=== PATIENT | female | born 1985 | race Caucasian/White ===

== ENCOUNTER 2021-06-22 10:11 | Inpatient (IN) | payer BC ==
[2021-06-22] MEDS ORDERED: Nalbuphine 10 MG/1 ML Vial IVPUSH PRN (11:19)
[2021-06-22] MEDS ORDERED: Sodium Chloride 0.9% 10 ML Syringe FLUSH PRN (11:19)
[2021-06-22] MEDS ORDERED: Oxytocin/Lactated Ringers 10 UNIT/1,000 ML BAG IV SCH (11:30)
[2021-06-22] MEDS: Lactated Ringers 1,000 ML IV SCH ×3 (12:33→19:23)
--- NOTE | 2021-06-22 13:10 | PCM.LDHP ---
L&D History of Present Illness - General Date of Service: 06/22/21 Admit Problem/Dx: Patient Status Order with Admit Dx/Problem 06/22/21 10:18 Patient Status [ADT] Routine Admission Diagnosis/Problem Admission Diagnosis/Problem 06/22/21 13:02 Lizbeth is a 35-year-old 1001 female admitted at 39-4/7 weeks gestational age with an NICANOR of 06/25/2021 for SROM, positive AmniSure in early labor. Source of Information: Patient History Limitations: Reports: No Limitations - History of Present Illness Introduction:: Lizbeth is a 35-year-old 2 para 1001 female admitted at 39-4/7 weeks gestational age with an NICANOR of 06/25/2021 for SROM, positive AmniSure in early labor. She reports at approximately 0700 hrs. on 06/14/2021 while resting in bed she had a slow trickle of fluid. This is continued on till present time. AmniSure done in L&D this a.m. was positive for SROM. Patient has only minimal contractions noted at this time. 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 Her NICANOR of 06/23/2020 was based on her certain LMP 09/18/2020 and supported by an ultrasound done on 12/05/2020. Patient was seen early in and on a regular basis throughout the . Weight gain was from 180 to 213 pounds. Baby's been active. No significant tractions have been noted. Fundal height growth has been appropriate. Laboratory testing in shows blood to be O+ with a negative antibody screen. Initial hemoglobin was 13.4 g/dL and at second trimester was 11.8 g/dL. Platelet count was last done on 04/02/2021 and was 153,000. Her 1 hour GTT was 113. She is rubella positive. RPR is nonreactive. Hepatitis B surface antigen is negative. Chlamydia and gonorrhea tests were negative. Group B strep screen was negative. Allergies: None Medications: 1. vitamins 1 daily 2. Valtrex 1000 mg tablets take 2 tablets by mouth 2 times per day as needed for HSV. Past medical history: 1. x1 Past surgical history: 1. D&C Family history: Mother and father are alive. Father has history of diabetes and hypertension on oral medications. Mother is healthy. Grandfather . Maternal grandfather secondary to lung cancerwas not a smoker. Paternal grandfather secondary to colorectal cancer but also had diabetes. Maternal aunt and uncle with no problems. Paternal aunt and uncle with hypertension. Brothers x2 with good health. Social history: Patient is . is Timothy. They live on a [place]/ranch [place] of [place], [place]. She does not use any significant muscle alcohol, drugs or tobacco. Review of systems: Review of systems: In general patient has no complaints. Looking fluid. Is not having any significant contractions. Baby has been active. Skin: Negative Lungs: No infectious symptoms or shortness of breath Cardiovascular: No chest pain or exercise intolerance Breasts: No lumps, changes in size, pain, dimpling, discharge or axillary or supraclavicular concerns. GI: Negative : Changes associated with . Musculoskeletal: Negative Neurological: Negative Physical exam: In general the patient is well-developed, well-nourished, pleasant female of stated age in no acute distress. Skin is warm dry without lesions. HEENT, neck and back within normal limits. Lungs are clear with good breath sounds in all lung martin. Cardiovascular exam shows regular and rhythm without murmurs. Abdomen is gravid with last fundal height in clinic at 39 cm with baby in vertex presentation. Genital exam per digital evaluation shows cervix 2 cm, 80% effaced, -3 station, mid position, soft, cephalic presentation. Extremities and neurological exam are grossly within normal limits. - Related Data Allergies/Adverse Reactions: Allergies Allergy/AdvReac Type Severity Reaction Status Date / Time No Known Allergies Allergy Verified 06/22/21 10:22 Home Medications: Home Meds Mv-Mn/Iron/FA/Herbal/Digestive [ One Tablet] 1 tab PO DAILY 06/22/21 [History] H&P Review of Systems - Review of Systems: Review Of Systems: See Below L&D Exam - Exam Exam: See Below - Vital Signs Vital Signs: Last Vital Signs Temp 37.0 C 06/22/21 10:35 Pulse 82 06/22/21 10:35 Resp 16 06/22/21 10:35 BP 141/98 H 06/22/21 10:35 Pulse Ox 98 06/22/21 10:35 Weight: 97.386 kg - Patient Data Lab Results Last 24 hrs: Laboratory Results - last 24 hr 06/22/21 06/22/21 06/22/21 Range/Units 10:37 11:39 11:52 WBC 7.74 (3.98-10.04) K/mm3 RBC 3.65 L (3.98-5.22) M/mm3 Hgb 11.6 (11.2-15.7) gm/dl Hct 34.7 (34.1-44.9) % MCV 95.1 H (79.4-94.8) fl MCH 31.8 (25.6-32.2) pg MCHC 33.4 (32.2-35.5) g/dl RDW Std Deviation 44.8 (36.4-46.3) fL Plt Count 157 L (182-369) K/mm3 MPV 9.8 (9.4-12.3) fl Neut % (Auto) 72.0 H (34.0-71.1) % Lymph % (Auto) 17.8 L (19.3-51.7) % [place] % (Auto) 8.5 (4.7-12.5) % Eos % (Auto) 0.8 (0.7-5.8) Baso % (Auto) 0.1 (0.1-1.2) % Neut # (Auto) 5.57 (1.56-6.13) K/mm3 Lymph # (Auto) 1.38 (1.18-3.74) K/mm3 [place] # (Auto) 0.66 H (0.24-0.36) K/mm3 Eos # (Auto) 0.06 (0.04-0.36) K/mm3 Baso # (Auto) 0.01 (0.01-0.08) K/mm3 Membrane Rupture Positive H SARS-CoV-2 RNA (MARISSA) Negative (NEGATIVE) Result Diagrams: 06/22/21 11:52 - Problem List (1) 39 weeks gestation of SNOMED Code(s): 70582523 ICD Code: Z3A.39 - 39 WEEKS GESTATION OF Status: Acute Current Visit: Yes (2) SROM (spontaneous rupture of membranes) SNOMED Code(s): 354266364 ICD Code: [id number] - Status: Acute Current Visit: Yes Problem List Initiated/Reviewed/Updated: Yes Orders Last 24hrs: Active Orders 24 hr Category Date Time Status Patient Status [ADT] Routine ADT 06/22/21 10:18 Active Activity as Tolerated [RC] PFP Care 06/22/21 11:19 Active Communication Order [RC] ASDIRECTED Care 06/22/21 11:19 Active Heart Tones [RC] ASDIRECTED Care 06/22/21 11:20 Active Notify Provider [RC] PFP Care 06/22/21 11:19 Active Notify Provider [RC] PRN Care 06/22/21 11:19 Active Peripheral IV Care [RC] . DIRECTED Care 06/22/21 11:20 Active Vital Signs [RC] 03,09,15,21 Care 06/22/21 11:19 Active Vital Signs [RC] PER UNIT ROUTINE Care 06/22/21 10:18 Active Regular Diet [DIET] Diet 06/22/21 Lunch Active HEP C VIRUS AB [REF] Stat Lab 06/22/21 11:52 Received RAPID PLASMA REAGIN,RPR [CHEM] Routine Lab 06/22/21 11:52 Received TYPE AND SCREEN [BBK] Stat Lab 06/22/21 11:52 Received Lactated Ringers [Ringers, Lactated] 1,000 ml Med 06/22/21 11:30 Active IV ASDIRECTED Nalbuphine [Nubain] Med 06/22/21 11:19 Active 10 mg IVPUSH Q2H PRN Oxytocin/Lactated Ringers [Pitocin in LR 10 Units/1,000 Med 06/22/21 11:30 Active ML] 10 unit in 1,000 ml IV TITRATE Sodium Chloride 0.9% [Saline Flush] Med 06/22/21 11:19 Active 10 ml FLUSH ASDIRECTED PRN Electronic Heart Tones Ext w TOCO [WOMSER] Oth 06/22/21 11:19 Ordered Routine Peripheral IV Insertion Adult [OM.PC] Routine Oth 06/22/21 11:19 Ordered Resuscitation Status Routine Resus Stat 06/22/21 10:18 Ordered Medication Orders Lactated Ringer's (Ringers, Lactated) 1,000 mls @ 100 mls/hr IV ASDIRECTED STACIE Last Admin: 06/22/21 12:33 Dose: 100 mls/hr Documented by: FICEKEL Oxytocin/Lactated Ringer's (Pitocin In Lr 10 Units/1,000 Ml) 10 unit in 1,000 mls @ 12 mls/hr IV TITRATE STACIE; Protocol Last Admin: 06/22/21 12:33 Dose: 2 munits/min, 12 mls/hr Documented by: EMILY Nalbuphine HCl (Nalbuphine 10 Mg/1 Ml Vial) 10 mg IVPUSH Q2H PRN PRN Reason: Pain Sodium Chloride (Sodium Chloride 0.9% 10 Ml Syringe) 10 ml FLUSH ASDIRECTED PRN PRN Reason: Keep Vein Open Assessment/Plan Comment:: Assessment: 1. Lizbeth is a 35-year-old 1001 female admitted at 39-4/7 weeks gestational age with an NICANOR of 06/25/2021 for SROM, positive AmniSure in early la bor. 2. Group B strep negative 3. Patient desiring epidural in labor for analgesia 4. Patient plans to breast-feed 5. Minimal risk factors present. Plan: 1. Anticipate 2. Pitocin augmentation of labor if not butch well within the next 6 hours to attempt at achieving delivery by 24 hours post SROM 3. Support breast-feeding decision 4. Epidural per patient desire 5. Initial labs include Covid19, RPR, CBC.
[2021-06-22] MEDS ORDERED: Bupivacaine/fentaNYL/NS 100 ML Bag EPIDUR PRN (15:53)
[2021-06-22] MEDS ORDERED: ePHEDrine 50 MG/ML SDV IVPUSH PRN (15:53)
[2021-06-22] MEDS ORDERED: diphenhydrAMINE 50 MG/ML SDV IVPUSH PRN (15:53)
[2021-06-22] MEDS ORDERED: fentaNYL 100 MCG/2 ML SDV EPIDUR PRN (15:53)
--- NOTE | 2021-06-22 16:26 | PCM.PREANE ---
Preanesthetic Assessment - Procedure Proposed Procedure: herminio - Anesthesia/Transfusion/Family Hx Anesthesia History: Prior Anesthesia Reaction Family History of Anesthesia Reaction: No Transfusion History: No Prior Transfusion(s) - Review of Systems General: No Symptoms Pulmonary: No Symptoms Cardiovascular: No Symptoms Gastrointestinal: No Symptoms Neurological: No Symptoms Other: Reports: None - Physical Assessment Vital Signs: Last Vital Signs Temp 98.6 F 06/22/21 10:35 Pulse 82 06/22/21 10:35 Resp 16 06/22/21 10:35 BP 141/98 H 06/22/21 10:35 Pulse Ox 98 06/22/21 10:35 Height: 5 ft 5 in Weight: 97.069 kg ASA Class: 2 Mental Status: Alert & Oriented x3 Airway Class: Mallampati = 2 Dentition: Reports: Normal Dentition Thyro-Mental Finger Breadths: 3 Mouth Opening Finger Breadths: 3 ROM/Head Extension: Full Lungs: Clear to Auscultation, Normal Respiratory Effort Cardiovascular: Regular Rate, Regular Rhythm - Lab Values: Laboratory Last Values WBC 7.74 K/mm3 (3.98-10.04) 06/22/21 11:52 RBC 3.65 M/mm3 (3.98-5.22) L 06/22/21 11:52 Hgb 11.6 gm/dl (11.2-15.7) 06/22/21 11:52 Hct 34.7 % (34.1-44.9) 06/22/21 11:52 MCV 95.1 fl (79.4-94.8) H 06/22/21 11:52 MCH 31.8 pg (25.6-32.2) 06/22/21 11:52 MCHC 33.4 g/dl (32.2-35.5) 06/22/21 11:52 RDW Std Deviation 44.8 fL (36.4-46.3) 06/22/21 11:52 Plt Count 157 K/mm3 (182-369) L 06/22/21 11:52 MPV 9.8 fl (9.4-12.3) 06/22/21 11:52 Neut % (Auto) 72.0 % (34.0-71.1) H 06/22/21 11:52 Lymph % (Auto) 17.8 % (19.3-51.7) L 06/22/21 11:52 [place] % (Auto) 8.5 % (4.7-12.5) 06/22/21 11:52 Eos % (Auto) 0.8 (0.7-5.8) 06/22/21 11:52 Baso % (Auto) 0.1 % (0.1-1.2) 06/22/21 11:52 Neut # (Auto) 5.57 K/mm3 (1.56-6.13) 06/22/21 11:52 Lymph # (Auto) 1.38 K/mm3 (1.18-3.74) 06/22/21 11:52 [place] # (Auto) 0.66 K/mm3 (0.24-0.36) H 06/22/21 11:52 Eos # (Auto) 0.06 K/mm3 (0.04-0.36) 06/22/21 11:52 Baso # (Auto) 0.01 K/mm3 (0.01-0.08) 06/22/21 11:52 BUN 10 mg/dL (7-18) 06/22/21 11:48 Creatinine 0.6 mg/dL (0.55-1.02) 06/22/21 11:48 Est Cr Clr Drug Dosing 118.88 mL/min 06/22/21 11:48 Estimated GFR (MDRD) > 60 mL/min (>60) 06/22/21 11:48 Uric Acid 4.1 mg/dL (2.6-6.0) 06/22/21 11:48 AST 14 U/L (15-37) L 06/22/21 11:48 ALT 24 U/L (14-59) 06/22/21 11:48 Lactate Dehydrogenase 177 U/L (81-234) 06/22/21 11:48 Ur Random Creatinine < 13.0 mg/dL (30.0-125.0) L 06/22/21 14:24 U Random Total Protein 9.3 mg/dL (0.0-11.8) 06/22/21 14:24 Protein/Creatinin Ratio TNP 06/22/21 14:24 Membrane Rupture Positive H 06/22/21 10:37 SARS-CoV-2 RNA (MARISSA) Negative (NEGATIVE) 06/22/21 11:39 Blood Type O POSITIVE 06/22/21 11:52 Gel Antibody Screen Negative 06/22/21 11:52 - Allergies Allergies/Adverse Reactions: Allergies Allergy/AdvReac Type Severity Reaction Status Date / Time No Known Allergies Allergy Verified 06/22/21 10:22 - Blood Blood Available: No - Acknowledgements Anesthesia Type Planned: Epidural Pt an Appropriate Candidate for the Planned Anesthesia: Yes Alternatives and Risks of Anesthesia Discussed w Pt/Guardian: Yes Pt/Guardian Understands and Agrees with Anesthesia Plan: Yes PreAnesthesia Questionnaire Cardiovascular History: Reports: None Respiratory History: Reports: None Gastrointestinal History: Reports: GERD (minimal with preg) 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 Placenta privia which resolved with this current Musculoskeletal History: Reports: None Endocrine/Metabolic History: Reports: Obesity/BMI 30+ Oncologic (Cancer) History: Reports: None - SUBSTANCE USE Tobacco Use Status *Q: Never Tobacco User Tobacco Use Within Last Twelve Months: No Second Hand Smoke Exposure: No Days Per Week of Alcohol Use: 0 Recreational Drug Use History: No - HOME MEDS Home Medications: Home Meds Mv-Mn/Iron/FA/Herbal/Digestive [ One Tablet] 1 tab PO DAILY 06/22/21 [History] - CURRENT (IN HOUSE) MEDS Current Meds: Current Medications Diphenhydramine HCl (Diphenhydramine 50 Mg/Ml Sdv) 25 mg IVPUSH Q6H PRN PRN Reason: pruritis Ephedrine Sulfate (Ephedrine 50 Mg/Ml Sdv) 5 mg IVPUSH ASDIRECTED PRN PRN Reason: Hypotension Fentanyl (Fentanyl 100 Mcg/2 Ml Sdv) 100 mcg EPIDUR Q3H PRN PRN Reason: Pain Last Admin: 06/22/21 16:09 Dose: 100 mcg Documented by: Fentanyl/Bupivacaine HCl (Bupivacaine/Fentanyl/Ns 100 Ml Bag) 100 ml EPIDUR ASDIRECTED PRN PRN Reason: Pain Last Admin: 06/22/21 16:09 Dose: 100 ml Documented by: Lactated Ringer's (Ringers, Lactated) 1,000 mls @ 100 mls/hr IV ASDIRECTED STACIE Last Admin: 06/22/21 15:42 Dose: 100 mls/hr Documented by: Oxytocin/Lactated Ringer's (Pitocin In Lr 10 Units/1,000 Ml) 10 unit in 1,000 mls @ 12 mls/hr IV TITRATE STACIE; Protocol Last Titration: 06/22/21 14:30 Dose: 6 munits/min, 36 mls/hr Documented by: Nalbuphine HCl (Nalbuphine 10 Mg/1 Ml Vial) 10 mg IVPUSH Q2H PRN PRN Reason: Pain Sodium Chloride (Sodium Chloride 0.9% 10 Ml Syringe) 10 ml FLUSH ASDIRECTED PRN PRN Reason: Keep Vein Open
[2021-06-22] MEDS ORDERED: Sodium Chloride 0.9% 1,000 ML IRR PRN (18:19)
[2021-06-22] MEDS ORDERED: Sodium Chloride 0.9% 1,000 ML IRR SCH (18:45)
[2021-06-22] MEDS ORDERED: Sodium Chloride 0.9% 1,000 ML ONE (18:50)
--- NOTE | 2021-06-22 22:54 | PCM.SN.2 ---
- Free Text/Narrative Note: Delivery note: Stage I: Lizbeth is a 35-year-old 2 now para 2002 female admitted at 39- 4/7 weeks gestational age with an NICANOR of 06/25/2021 for SROM, positive AmniSure in early labor. She reports at approximately 0700 hrs. on 06/14/2021 while resting in bed she had a slow trickle of fluid. She progressed in labor very slowly. She underwent enhancement of labor with Pitocin. Eventually underwent an epidural for labor analgesia with good results. Lizbeth had an intrauterine pressure catheter placed after the epidural to facilitate evaluation of contraction adequacy. Pitocin was started thereafter to enhance the contractions. With this enhancement the heart tones showed repetitive variable decelerations that were moderate intensity. With this finding decision was made to do amnioinfusion with a normal saline. 200 cc of normal saline was rapidly placed through the catheter into the uterine cavity followed by a maintenance dose of 150 cc/h. With this amnioinfusion the variable decelerations essentially resolved to the degree that labor ensued progressed to complete cervical dilation by approximately 2215 hrs. Stage II: Lizbeth delivered a viable, hirsch, female with Apgars of 8 and 9, weight of 2780 g (6 pounds 2.1 ounces and a length of 20.0 inches at 2228 hrs. on 06/22/2016. The baby delivered in a direct occiput anterior position. There was a moderately tight nuchal cord which was reduced over the baby's body with delivery. Shoulders were delivered with a gentle downward and then upward traction. Basilar completely and placed on mom's abdomen. She was dried with warm blanket, nose and mouth were bulb suctioned by nursing staff. The umbil ical cord is allowed to pulsate for approximately 2 to 3 minutes after which time was clamped x2 and cut by the baby's father Timothy. Cord was obtained. The umbilical cord had 3 vessels. The vagina and perineum was evaluated and no lacerations were noted. Stage III: The placenta delivered at 2233 hrs. in a Cesia presentation, it appeared intact and complete and was discarded per patient desire. As high blood loss is 100 cc. Patient plans to breast-feed. Condition: Good
[2021-06-22] MEDS ORDERED: Benzocaine/Menthol 20%-0.5% Spray 56 GM Canister TOP PRN (22:59)
[2021-06-23] MEDS: Witch Hazel Medicated Pads 40/Jar TOP PRN (00:14)
[2021-06-23] MEDS: Ibuprofen 600 MG Tab PO PRN ×3 (06:47→17:10)
--- NOTE | 2021-06-23 07:06 | PCM.SN.2 ---
- Free Text/Narrative Note: note: Patient is doing well in the period. Minimal lochia, voiding well, ambulated without problems. Nursing without concerns. Patient is afebrile, vital signs are stable with the exception of some blood pressure has been borderline elevated. Abdomen is flat, soft, uterus is below the umbilicus and is firm and nontender. Legs are nontender. Assessment: recovery going well. Plan: Routine care. Will monitor blood pressure closely. Patient be discharged home within the next 24-48 hours.
[2021-06-23] MEDS ORDERED: Bupivacaine 0.25% 10 ML SDV ONE (08:00)
[2021-06-23] MEDS: Acetaminophen 325 MG Tab PO PRN ×3 (08:42→21:13)
[2021-06-23] MEDS: Docusate Sodium 100 MG Cap PO PRN (21:20)
--- NOTE | 2021-06-24 07:08 | PCM48HPAN ---
Post Anesthesia Note - EVALUATION WITHIN 48HRS OF ANESTHETIC Vital Signs in Normal Range: Yes Patient Participated in Evaluation: Yes Respiratory Function Stable: Yes Airway Patent: Yes Cardiovascular Function Stable: Yes Hydration Status Stable: Yes Pain Control Satisfactory: Yes Nausea and Vomiting Control Satisfactory: Yes Mental Status Recovered: Yes Vital Signs: Last Vital Signs Temp 36.5 C 06/24/21 04:28 Pulse 70 06/24/21 04:28 Resp 15 06/24/21 04:28 BP 138/92 H 06/24/21 04:28 Pulse Ox 98 06/24/21 04:28
[2021-06-24] MEDS: Ibuprofen 600 MG Tab PO PRN (07:46)
[2021-06-24] MEDS: Docusate Sodium 100 MG Cap PO PRN (07:54)
--- NOTE | 2021-06-24 08:39 | PCM.SN.2 ---
- Free Text/Narrative Note: Post Progress Note PPD #2 Subjective: Doing well overall. Ambulating without difficulty. Lochia minimal. Voiding without difficulty. Tolerating regular diet without nausea or vomiting. Pain controlled with oral medications. Breast-feeding with minimal difficulty. Denies any headaches, vision changes or epigastric pain. Objective: Vitals: Vital Signs - 24 hr 06/23/21 06/23/21 06/23/21 08:40 15:46 21:03 Temperature 36.2 C 36.6 C Pulse, 80 88 72 Peripheral Respiratory 12 16 Rate Blood Pressure 132/87 148/89 H 136/99 H O2 Sat by Pulse 98 100 99 Oximetry 06/23/21 06/24/21 21:04 04:28 Temperature 36.5 C Pulse, 70 Peripheral Respiratory 15 Rate Blood Pressure 125/93 H 138/92 H O2 Sat by Pulse 98 Oximetry Physical Exam General: Alert and oriented, no acute distress Lungs: Clear to auscultation bilaterally Heart: Regular rate and rhythm Abdomen: Soft, minimal appropriate tenderness, non-distended, fundus midline, nontender, and at the umbilicus Extremities: Trace edema in bilateral lower extremities to mid shins, no calf tenderness bilaterally ASSESSMENT: 35-year-old female -0-0-2 s/p normal vaginal delivery PPD #2, complicated by gestational hypertension diagnosed during labor PLAN: Doing well Breast-feeding with minimal difficulty. Assist as needed Lochia minimal. Continue to monitor for appropriate lochia. Continue routine care No evidence of severe features of preeclampsia. Patient continues to have mild range blood pressures but not severe enough to require treatment at this time Discharge home today Bernardino Hernandez MD 8:38 AM 06/24/2021
--- NOTE | 2021-06-24 08:44 | PCM.DCSUM1 ---
Discharge Summary - Hospital Course Free Text/Narrative:: Stage I: Lizbeth is a 35-year-old 2 now para 2001 female admitted at 39- 4/7 weeks gestational age with an NICANOR of 06/25/2021 for SROM, positive AmniSure in early labor. She reports at approximately 0700 hrs. on 06/14/2021 while resting in bed she had a slow trickle of fluid. She progressed in labor very slowly. She underwent enhancement of labor with Pitocin. Eventually underwent an epidural for labor analgesia with good results. Lizbeth had an intrauterine pressure catheter placed after the epidural to facilitate evaluation of contraction adequacy. Pitocin was started thereafter to enhance the contractions. With this enhancement the heart tones showed repetitive variable decelerations that were moderate intensity. With this finding decision was made to do amnioinfusion with a normal saline. 200 cc of normal saline was rapidly placed through the catheter into the uterine cavity followed by a maintenance dose of 150 cc/h. With this amnioinfusion the variable decelerations essentially resolved to the degree that labor ensued progressed to complete cervical dilation by approximately 2215 hrs. Stage II: Lizbeth delivered a viable, hirsch, female with Apgars of 8 and 9, weight of 2780 g (6 pounds 2.1 ounces and a length of 20.0 inches at 2228 hrs. on 06/22/2016. The baby delivered in a direct occiput anterior position. There was a moderately tight nuchal cord which was reduced over the baby's body with delivery. Shoulders were delivered with a gentle downward and then upward traction. Basilar completely and placed on mom's abdomen. She was dried with warm blanket, nose and mouth were bulb suctioned by nursing staff. The umbilical cord is allowed to pulsate for approximately 2 to 3 minutes after which time was clamped x2 and cut by the baby's father Timothy. Cord was obtained. The umbilical cord had 3 vessels. The vagina and perineum was evaluated and no lacerations were noted. Stage III: The placenta delivered at 2233 hrs. in a Cesia presentation, it appeared intact and complete and was discarded per patient desire. As high blood loss is 100 cc. Patient plans to breast-feed. Condition: Good Diagnosis: Stroke: No - Discharge Data Discharge Date: 06/24/21 Discharge Disposition: Home, Self-Care 01 Condition: Good - Referral to Home Health Primary Care Physician: Genie Lyn MD - Discharge Diagnosis/Problem(s) (1) Gestational hypertension SNOMED Code(s): 40053832 ICD Code: O13.9 - GESTATIONAL HTN W/O SIGNIFICANT PROTEINURIA, UNSP TRIMESTER Status: Acute Current Visit: Yes (2) Vaginal delivery SNOMED Code(s): 375915576 ICD Code: O80 - ENCOUNTER FOR FULL-TERM UNCOMPLICATED DELIVERY Status: Acute Current Visit: Yes (3) 39 weeks gestation of SNOMED Code(s): 60909341 ICD Code: Z3A.39 - 39 WEEKS GESTATION OF Status: Acute Current Visit: Yes - Patient Summary/Data Complications: Gestational hypertension in labor Consults: None Hospital Course: Lizbeth Hernandez was admitted for spontaneous rupture of membranes confirmed with AmniSure. She was leaking clear fluid on admission. On admission her cervix was dilated to 2 cm. She was GBS negative. She had multiple mild range blood pressures throughout labor. She had lab work that did not show any significant abnormalities consistent with preeclampsia. She was diagnosed with gestational hypertension. She was given pitocin for augmentation. She was given an epidural for anesthesia. She progressed to complete and began pushing. On 06/22/2021 she had a normal vaginal delivery of a live female infant at 22:28. Apgars of 8 and 9. Weight of 2780 g (6 pounds 2.1 ounces). Her course was uneventful. Her pain was well controlled and she had minimal lochia. She was ambulating, tolerating a regular diet and voiding normally. She was breast-feeding with minimal difficulty. She was afebrile and her hematocrit was 34.7 on admission. She desired to be discharged home on the morning of PPD #2. Her blood type is O+. - Patient Instructions Diet: Regular Diet as Tolerated Activity: Apply Ice, As Tolerated Activity, Other: Nothing in the vagina for 6 weeks Driving: May Drive Today Showering/Bathing: May Shower Notify Provider of: Fever, Increased Pain, Swelling and Redness, Drainage, Nausea and/or Vomiting Other/Special Instructions: Please contact your physician's office if you have heavy vaginal bleeding enough to soak a pad in less than an hour for several hours. Monitor for any signs of an infection in the breasts with severe pain or redness of the breast. Please contact your physician's office if you have a severe headache that does not improve with Tylenol or ibuprofen, spots in your vision or severe pain in your upper abdomen. - Discharge Plan *PRESCRIPTION DRUG MONITORING PROGRAM REVIEWED*: Not Applicable *COPY OF PRESCRIPTION DRUG MONITORING REPORT IN PATIENT SHILO: Not Applicable Home Medications: Home Meds Mv-Mn/Iron/FA/Herbal/Digestive [ One Tablet] 1 tab PO DAILY 06/22/21 [History] Acetaminophen [Tylenol] 650 mg PO Q6H PRN tablet 06/24/21 [Rx] Benzocaine/Menthol [Dermoplast Pain Relief [place]] 1 spray TOP ASDIRECTED PRN canister 06/24/21 [Rx] Docusate Sodium [Colace] 100 mg PO BID PRN cap 06/24/21 [Rx] Ibuprofen [Motrin] 600 mg PO Q6H PRN tablet 06/24/21 [Rx] witch Tiburcio [Tucks] 1 pad TOP ASDIRECTED PRN pad 06/24/21 [Rx] Patient Handouts: Care After Vaginal Delivery, Hypertension During Referrals: Genie Lyn MD [Primary Care Provider] - (Follow-up for blood pressure check on 06/27 or 06/28 due to gestational hypertension or earlier as needed for any other problems as they may arise.) - Discharge Summary/Plan Comment DC Time >30 min.: No Total # of Minutes for Discharge Time: 15 minutes - Patient Data Vitals - Most Recent: Last Vital Signs Temp 36.5 C 06/24/21 04:28 Pulse 70 06/24/21 04:28 Resp 15 06/24/21 04:28 BP 138/92 H 06/24/21 04:28 Pulse Ox 98 06/24/21 04:28 Weight - Most Recent: 97.069 kg Med Orders - Current: Current Medications Acetaminophen (Acetaminophen 325 Mg Tab) 650 mg PO Q4H PRN PRN Reason: mild pain or fever Last Admin: 06/23/21 21:13 Dose: 650 mg Documented by: Benzocaine/Menthol (Benzocaine/Menthol 20%-0.5% [place] 56 Gm Canister) 0 gm TOP ASDIRECTED PRN PRN Reason: Perineal Comfort Measure Last Admin: 06/23/21 00:13 Dose: 1 can Documented by: Docusate Sodium (Docusate Sodium 100 Mg Cap) 100 mg PO BID PRN PRN Reason: Constipation Last Admin: 06/24/21 07:54 Dose: 100 mg Documented by: Ibuprofen (Ibuprofen 600 Mg Tab) 600 mg PO Q4H PRN PRN Reason: Mild pain or fever Last Admin: 06/24/21 07:46 Dose: 600 mg Documented by: Kiya Nielsen (Kiya Nielsen Medicated Pads 40/Jar) 1 pad TOP ASDIRECTED PRN PRN Reason: Perineal Comfort Measure Last Admin: 06/23/21 00:14 Dose: 1 tub Documented by: Discontinued Medications Diphenhydramine HCl (Diphenhydramine 50 Mg/Ml Sdv) 25 mg IVPUSH Q6H PRN PRN Reason: pruritis Ephedrine Sulfate (Ephedrine 50 Mg/Ml Sdv) 5 mg IVPUSH ASDIRECTED PRN PRN Reason: Hypotension Fentanyl (Fentanyl 100 Mcg/2 Ml Sdv) 100 mcg EPIDUR Q3H PRN PRN Reason: Pain Last Admin: 06/22/21 16:09 Dose: 100 mcg Documented by: Fentanyl/Bupivacaine HCl (Bupivacaine/Fentanyl/Ns 100 Ml Bag) 100 ml EPIDUR ASDIRECTED PRN PRN Reason: Pain Last Admin: 06/22/21 16:09 Dose: 100 ml Documented by: Lactated Ringer's (Ringers, Lactated) 1,000 mls @ 100 mls/hr IV ASDIRECTED STACIE Last Admin: 06/22/21 19:23 Dose: 100 mls/hr Documented by: Oxytocin/Lactated Ringer's (Pitocin In Lr 10 Units/1,000 Ml) 10 unit in 1,000 mls @ 12 mls/hr IV TITRATE STACIE; Protocol Last Titration: 06/22/21 19:40 Dose: 4 munits/min, 24 mls/hr Documented by: Sodium Chloride (Sodium Chloride 0.9%) 1,000 mls @ 200 mls/hr IRR ASDIRECTED PRN PRN Reason: Labor order Sodium Chloride (Normal Saline) 1,000 mls @ 200 mls/hr IRR ASDIRECTED STACIE Sodium Chloride (Normal Saline) Confirm Administered Dose 1,000 mls @ as directed .ROUTE .[facility] Stop: 06/22/21 18:51 Last Admin: 06/22/21 19:10 Dose: Not Given Documented by: Nalbuphine HCl (Nalbuphine 10 Mg/1 Ml Vial) 10 mg IVPUSH Q2H PRN PRN Reason: Pain Sodium Chloride (Sodium Chloride 0.9% 10 Ml Syringe) 10 ml FLUSH ASDIRECTED PRN PRN Reason: Keep Vein Open
[2021-06-24] MEDS: Witch Hazel Medicated Pads 40/Jar TOP PRN (10:57)
== END 2021-06-24 11:00 | disposition home or self-care (01) | DRG 560 ==
LOC: JD.OBCHECK 10:11 → JD.OB 10:12 → JD.OBCHECK 10:18 → JD.OB 10:18 → OBSVTOIN 22:28 → JD.OB 22:28
PROVIDERS: ADMIT Obstetrics & Gynecology; ATTEND Obstetrics & Gynecology
PROC: 10E0XZZ Delivery of Products of Conception, External Approach (ICD-10-PCS; principal; 2021-06-22)
PROC: 10H07YZ Insertion of Other Device into Products of Conception, Via Natural or Artificial Opening (ICD-10-PCS; 2021-06-22)
PROC: 3E0R3BZ Introduction of Anesthetic Agent into Spinal Canal, Percutaneous Approach (ICD-10-PCS; 2021-06-22)
PROC: 00HU33Z Insertion of Infusion Device into Spinal Canal, Percutaneous Approach (ICD-10-PCS; 2021-06-22)
DX: O13.4 Gestational [pregnancy-induced] hypertension without significant proteinuria, complicating childbirth (principal); Z37.0 Single live birth; O69.1XX0 Labor and delivery complicated by cord around neck, with compression, not applicable or unspecified; Z20.822 Contact with and (suspected) exposure to COVID-19; Z3A.39 39 weeks gestation of pregnancy
CPT/HCPCS: 01967; 36415; 51702; 59025; 59409; 82565; 82570; 83615; 84112; 84156; 84450; 84460; 84520; 84550; 85025; 86592; 86803; 86850; 86900; 86901; A9270-GY; J2590; J3010; J3490; J7120; U0002

== ENCOUNTER 2022-09-28 18:51 | Inpatient (IN) | payer BC ==
[~2022-09-28 18:51] MED LIST: Lidocaine 1% 10 ML MDV ONE
[2022-09-28] MEDS ORDERED: Sodium Chloride 0.9% 10 ML Syringe FLUSH PRN (19:42)
[2022-09-28] MEDS ORDERED: Ondansetron 4 MG/2 ML SDV IVPUSH PRN (19:42)
[2022-09-28] MEDS ORDERED: Calcium Carbonate 500 MG Tab.Chew PO PRN (19:42)
[2022-09-28] MEDS ORDERED: Oxytocin/Lactated Ringers 10 UNIT/1,000 ML BAG IV SCH ×2 (19:45)
[2022-09-28] MEDS ORDERED: Sodium Chloride 0.9% 10 ML Syringe FLUSH SCH (21:00)
[2022-09-28] MEDS: Lactated Ringers 1,000 ML IV SCH ×2 (21:19→23:48)
[2022-09-29] MEDS ORDERED: diphenhydrAMINE 50 MG/ML SDV IVPUSH PRN (00:19)
[2022-09-29] MEDS ORDERED: ePHEDrine 50 MG/ML SDV IVPUSH PRN (00:19)
[2022-09-29] MEDS ORDERED: Bupivacaine/fentaNYL/NS 100 ML Bag EPIDUR PRN (00:19)
[2022-09-29] MEDS ORDERED: fentaNYL 100 MCG/2 ML SDV EPIDUR PRN (00:19)
[2022-09-29] MEDS: Nalbuphine HCl 10 MG/ 1ML Amp IVPUSH PRN ×2 (02:41→05:33)
[2022-09-29] MEDS: Lactated Ringers 1,000 ML IV SCH (06:21)
[2022-09-29] MEDS ORDERED: Benzocaine/Menthol 20%-0.5% Spray 78 GM Cannister TOP PRN (08:52)
[2022-09-29] MEDS ORDERED: Docusate Sodium 100 MG Cap PO PRN (08:52)
[2022-09-29] MEDS: Witch Hazel Medicated Pads 40/Jar TOP PRN (09:01)
[2022-09-29] MEDS: Acetaminophen 325 MG Tab PO PRN ×3 (09:02→20:21)
[2022-09-29] MEDS: Ibuprofen 600 MG Tab PO PRN ×2 (11:18→16:31)
[2022-09-30] MEDS: Ibuprofen 600 MG Tab PO PRN (00:19)
[2022-09-30] MEDS: Acetaminophen 325 MG Tab PO PRN (03:28)
[2022-09-30] MEDS ORDERED: Measles, Mumps & Rubella Vaccine 0.5 ML SDV SUBCUT ONE (09:52)
[2022-09-30] MEDS: Witch Hazel Medicated Pads 40/Jar TOP PRN (11:03)
== END 2022-09-30 12:05 | disposition home or self-care (01) | DRG 560 ==
LOC: JD.OBCHECK 18:51 → JD.OB 18:53 → JD.OBCHECK 19:41 → OBSVTOIN 19:42 → JD.OB 19:42
PROVIDERS: ADMIT Obstetrics & Gynecology; ATTEND Obstetrics & Gynecology
PROC: 10D07Z6 Extraction of Products of Conception, Vacuum, Via Natural or Artificial Opening (ICD-10-PCS; principal; 2022-09-28)
PROC: 10907ZC Drainage of Amniotic Fluid, Therapeutic from Products of Conception, Via Natural or Artificial Opening (ICD-10-PCS; 2022-09-28)
PROC: 3E033VJ Introduction of Other Hormone into Peripheral Vein, Percutaneous Approach (ICD-10-PCS; 2022-09-28)
PROC: 0HQ9XZZ Repair Perineum Skin, External Approach (ICD-10-PCS; 2022-09-28)
PROC: 00HU33Z Insertion of Infusion Device into Spinal Canal, Percutaneous Approach (ICD-10-PCS; 2022-09-28)
DX: O70.0 First degree perineal laceration during delivery (principal); Z3A.40 40 weeks gestation of pregnancy; Z37.0 Single live birth
CPT/HCPCS: 36415; 59025; 59409; 85025; 86592; 90471; 90707; A9270-GY; J2300; J2590; J3010; J7120

== ENCOUNTER 2022-10-04 09:25 | Emergency (ER) | payer BC ==
[2022-10-04] MEDS ORDERED: HYDROmorphone 0.5 MG/0.5 ML Syringe IVPUSH ONE (10:25)
[2022-10-04] MEDS ORDERED: Metoclopramide 10 MG/2 ML SDV IVPUSH ONE (10:25)
[2022-10-04] MEDS ORDERED: Dextrose 5%-Lactated Ringers 1,000 ML IV SCH (10:30)
== END 2022-10-04 12:50 | disposition home or self-care (01) ==
LOC: JD.ED 09:25
DX: I15.8 Other secondary hypertension (principal); G97.1 Other reaction to spinal and lumbar puncture; E66.9 Obesity, unspecified; Z68.34 Body mass index [BMI] 34.0-34.9, adult; Z79.899 Other long term (current) drug therapy
CPT/HCPCS: 36415; 80053; 83735; 85025; 96374; 96375; 99283; J1170; J2765; J7121